=== PATIENT | female | born 1980 | race Caucasian/White ===

== ENCOUNTER 2022-07-29 03:08 | Emergency (ER) | payer OTHER, SELFPAY ==
--- NOTE | ~2022-07-29 | XR_ITS ---
EXAMINATION: XR CHEST CLINICAL INFORMATION: Chest pain COMPARISON: None TECHNIQUE: Frontal view of the chest was obtained. FINDINGS: No significant abnormality is noted involving the heart, lungs, mediastinum, bony thorax or soft tissues. XR/XR chest 1V IMPRESSION: Unremarkable examination.
--- NOTE | 2022-07-29 03:11 | ECG_ITS ---
Test Reason : CP Blood Pressure : / mmHG Vent. Rate : 098 BPM Atrial Rate : 098 BPM P-R Int : 118 ms QRS Dur : 076 ms QT Int : 354 ms P-R-T Axes : 040 066 051 degrees QTc Int : 451 ms Artifact in tracing Normal sinus rhythm Likely Normal ECG When compared with ECG of 24-JUL-2016 15:31, No significant change was found Referred By: Generic ED Physician Electronically Signed By:DUNG DE LOS SANTOS
[2022-07-29 03:26] VITALS: BP 145/92; PULSE 105; RESP 24; TEMP 36.9; O2SAT 100; BMI 23.8
[2022-07-29 03:27] LABS: Hematocrit 41.3 % (37.0-47.0); Hemoglobin 13.4 g/dl (12.0-16.0); Mean Corpuscular HGB Conc 32.4 g/dl (31.0-35.0); Mean Corpuscular Hemoglobin 29.7 pg (27.0-33.0); Mean Corpuscular Volume 91.6 fL (80.0-98.0); Mean Platelet Volume 9.1 fL (9.4-12.3); Platelet Count 382 X10*3/uL (160-400); Red Blood Count 4.51 X10*6/uL (4.20-5.50); Red Cell Distribution Width 13.3 % (11.0-16.0); White Blood Count 8.6 X10*3/uL (4.8-10.8)
[2022-07-29 03:58] LABS: Alanine Aminotransferase 16 U/L (0-31); Albumin Level 4.3 g/dL (3.5-5.0); Alkaline Phosphatase 65 U/L (39-117); Anion Gap 13 (12-20); Aspartate Amino Transferase 12 U/L (5-31); Bilirubin Total 0.3 mg/dL (0.0-1.0); Blood Urea Nitrogen 27 mg/dL (9-16); Carbon Dioxide 27 mmol/L (22-29); Chloride 102 mmol/L (96-108); Creatinine Clr Calc Pharmacy 59.1; Estimated Glomerular Filt Rate > 60; Glucose Random 107 mg/dL (60-115); Potassium 3.6 mmol/L (3.3-5.1); Sodium 138 mmol/L (135-145); Total Protein 6.8 g/dL (6.5-8.0)
[2022-07-29 04:09] LABS: Troponin-I High Sensitivity < 3.5 ng/L (<3.5-17.0)
--- NOTE | 2022-07-29 04:27 | ED.CHESTPAIN ---
HPI - Chest Pain General Chief Complaint: Chest Pain Stated Complaint: chest and l shoulder pain Time Seen by Provider: 07/29/22 05:38 Source: patient and family Mode of arrival: ambulatory Limitations: no limitations History of Present Illness HPI narrative: 42-year-old female came in with left shoulder pain radiating down to the left arm and going around her left armpit toward left side of her chest, pain as been there for 2 days, pain is severe 10/10, pain increase with movement of the neck or the left arm. No recent trauma to the neck, no recent heavy lifting. Related Data Previous Rx's Medication Instructions Recorded oxycodone 5 mg tablet 5 mg PO Q8H PRN pain #14 tabs 07/29/22 Allergies Allergy/AdvReac Type Severity Reaction Status Date / Time pregabalin [From LYRICA] Allergy Intermediate HIVES, Unverified 04/12/20 15:08 nausea and vomiting Sulfa (Sulfonamide Allergy Intermediate RASH Unverified 04/12/20 15:08 Antibiotics) [SULFA (SULFONAMIDE ANTIBIOTICS)] amoxicillin [AMOXICILLIN] Allergy Unknown ITCHINESS Unverified 04/12/20 15:08 AND REDNESS, rash carisoprodol [From SOMA] Allergy Unknown CHEST PAIN Unverified 04/12/20 15:08 sulfur Allergy Unknown Verified 07/31/17 00:00 sulfa Allergy Unknown hives Uncoded 02/07/19 00:00 tape Allergy Unknown rash Uncoded 02/07/19 00:00 Review of Systems Review of Systems: All other systems are reviewed and are negative Constitutional: Reports as per HPI and Reports no additional constitutional complaints Eyes: Reports as per HPI and Reports no additional eye complaints Reports system reviewed and no additional complaints, except as documented Cardiovascular: Reports as per HPI and Reports no additional cardiovascular complaints Respiratory: Reports as per HPI and Reports no additional respiratory complaints Gastrointestinal: Reports as per HPI and Reports no additional gastrointestinal complaints Genitourinary: Reports no additional female genitourinary complaints Musculoskeletal: Reports no additional musculoskeletal complaints Skin/Breast: Reports system reviewed and no additional complaints, except as docu Psychiatric: Reports no additional psychiatric complaints Endocrine: Reports no additional endocrine complaints Hematologic/Lymphatic: Reports no additional hematologic/lymphatic complaints Allergic/Immunologic: Reports no additional allergic/immunologic complaints Reports system reviewed and no additional complaints, except as documented and Reports Abnormal speech present [facility] Social History Social History Alcohol intake: never Smoked in Last 30 Days: No Use of substances other than those prescribed or required for medical reasons: No Advance Directives: No Patient : No Physical Exam Vital Signs: Vital Signs: Last Vital Signs Temp 98.5 F 07/29/22 03:26 Pulse 92 07/29/22 04:34 Resp 16 07/29/22 04:34 BP 145/92 H 07/29/22 03:26 Pulse Ox 98 07/29/22 04:34 O2 Del Method 07/29/22 04:34 BMI result Body Mass Index 23.8 Vital signs have been reviewed as appeared to be correct. Blood pressure normal. Heart rate normal. Respiration rate normal. Temperature normal. Oxygen saturation normal. Appearance: Alert. Oriented X3. No acute distress. Head: Normal external exam. Normocephalic. Atraumatic. No Mccall signs noted. No raccoon eyes noted Eyes: PERRLA. EOMI. Conjunctiva and sclera normal. Eyelids normal. ENT: TM's Normal. Pharynx normal. Uvula midline. Moist mucous membranes. No trismus noted. No drooling noted. No muffled voice noted. Neck: Normal inspection. Neck supple. FROM. No adenopathy. Thyroid Normal. No meningeal signs. No neck mass noted. CVS: Normal heart rate and rhythm. Heart sound normal. No murmurs noted. Pulses normal throughout. Respiratory: No respiratory distress. Painless inspiration. Breath sounds normal. No wheezes/rales/rhonchi noted. Chest nontender. No accessory muscle usage noted or decreased air movement noted. Abdomen: Soft and nontender. Bowel sounds normal in all 4 quadrants. No distention noted. No organomegaly noted. No visible injury noted. Back: No CVA tenderness. Full range of motion noted. Skin: Skin warm and dry. Normal skin color. Normal skin turgor. No rashes/lesions/lacerations noted. Extremities: Increase left shoulder and left arm pain if she turned her head to either side or try to left left arm above the head. Neuro: Oriented X 3. Cranial nerve exam: II-XII are grossly intact No motor deficit. No sensory deficit. Reflexes normal. Course Course Course Narrative: 42-year-old female history of POTS syndrome otherwise healthy came in with left cervical radiculopathy that improved with Dilaudid and Toradol patient feels better, no neurological deficit, patient was instructed to rest and refrain from heavy lifting will send home with oxycodone. Medications Administered Discontinued Medications Generic Name Dose Route Start Last Admin Trade Name Freq PRN Reason Stop Dose Admin Hydromorphone HCl 2 mg 07/29/22 04:26 07/29/22 04:31 Hydromorphone Hcl 2 Mg/Ml Vial IM 07/29/22 04:27 2 mg ONCE ONE Administration Protocol Ketorolac Tromethamine 30 mg 07/29/22 04:26 07/29/22 04:31 Ketorolac Tromethamine 30 Mg/Ml Vial IM 07/29/22 04:27 30 mg ONCE ONE Administration Medical Decision Making Differential Diagnosis Differential Diagnoses: The differential diagnosis associated with the presentation includes (ACS, cervical radiculopathy, pneumothorax, pneumonia.) Lab Data MDM Lab Attestation statement: I reviewed the patient's lab results. Result Diagrams: 07/29/22 03:20 07/29/22 03:20 Labs: Lab Results 07/29/22 07/29/22 07/29/22 Range/Units 03:20 03:20 03:20 WBC 8.6 (4.8-10.8) X10*3/uL RBC 4.51 (4.20-5.50) X10*6/uL Hgb 13.4 (12.0-16.0) g/dl Hct 41.3 (37.0-47.0) % MCV 91.6 (80.0-98.0) fL MCH 29.7 (27.0-33.0) pg MCHC 32.4 (31.0-35.0) g/dl RDW 13.3 (11.0-16.0) % Plt Count 382 (160-400) X10*3/uL MPV 9.1 L (9.4-12.3) fL Absolute Nucleated RBC 0.000 (0.0-0.012) X10*3/uL Nucleated RBC % (auto) 0.0 (0.0-0.2) /100WBC Sodium 138 (135-145) mmol/L Potassium 3.6 (3.3-5.1) mmol/L Chloride 102 (96-108) mmol/L Carbon Dioxide 27 (22-29) mmol/L Anion Gap 13 (12-20) BUN 27 H (9-16) mg/dL Creatinine 0.97 (0.5-1.4) mg/dL Estim Creat Clear Calc 59.1 Estimated GFR > 60 Random Glucose 107 (60-115) mg/dL Calcium 10.0 (8.4-10.2) mg/dL Total Bilirubin 0.3 (0.0-1.0) mg/dL AST 12 (5-31) U/L ALT 16 (0-31) U/L Alkaline Phosphatase 65 (39-117) U/L Troponin I High Sens < 3.5 (<3.5-17.0) ng/L Total Protein 6.8 (6.5-8.0) g/dL Albumin 4.3 (3.5-5.0) g/dL Independent Interpretation I performed an independent interpretation of an: EKG (Normal sinus rhythm at 98 beats per minute, normal intervals, normal axis deviation, no ST-T changes.) and Plain X-Ray (chest: Unremarkable examination.) Radiology Impression Discussion of test interpretation with radiology: I have reviewed the radiologist's reading. Discharge Plan Discharge Clinical Impression: Cervical radiculopathy Patient Disposition: Home, Self-Care Instructions: Cervical Radiculopathy (ED) Prescriptions: New oxycodone 5 mg tablet 5 mg PO Q8H PRN (Reason: pain) Qty: 14 0RF Rx Instructions: Partial Fill upon patient request. Referrals: Salbador Willard MD [Primary Care Provider] - Stand Alone Forms: Work/School Release
[2022-07-29] MEDS: HYDROmorphone HCl 2 MG/ML VIAL IM (04:31)
[2022-07-29] MEDS: Ketorolac Tromethamine 30 MG/ML VIAL IM (04:31)
[2022-07-29 04:34] VITALS: PULSE 82; PULSE 92; RESP 16; O2SAT 98
== END 2022-07-29 06:13 | disposition home or self-care (01) ==
PROVIDERS: Emergency Provider Emergency Medicine; PCP Internal Medicine
DX: M54.12 Radiculopathy, cervical region (principal)
CPT/HCPCS: 36415; 71045; 80053; 84484; 85027; 93005; 96372; 99284; 99285; J1170; J1885

== ENCOUNTER 2022-07-30 16:10 | Emergency (ER) | payer OTHER, SELFPAY | END 2022-07-30 17:09 | disposition left against medical advice (07) | PROVIDERS: Emergency Provider Emergency Medicine; PCP Internal Medicine | DX: R42 Dizziness and giddiness (principal); R20.2 Paresthesia of skin ==

== ENCOUNTER 2022-11-21 13:20 | Outpatient (REF) | payer OTHER, MEDICAID, SELFPAY ==
--- NOTE | ~2022-11-21 | XR_ITS ---
EXAMINATION: XR CHEST CLINICAL INFORMATION: Fever COMPARISON: Chest x-ray 07/29/2022 TECHNIQUE: 2 views of the chest were obtained. FINDINGS: Both lungs are expanded without acute pneumonic process. There is mild bilateral perihilar peribronchial wall thickening likely airway disease. Question bronchiectasis. Heart size and progress clarities normal. There is minimal dextroscoliosis mid dorsal spine. No other bony abnormality. XR/XR chest 2V IMPRESSION: Mild bilateral perihilar peribronchial wall thickening likely airway disease. Question bronchiectasis. No acute pneumonic process seen. Correlate with clinical exam and if required CT chest without contrast
== END 2022-11-21 13:21 | disposition home or self-care (01) ==
LOC: HO.HMGCX 13:20
PROVIDERS: PCP Internal Medicine; Visit Provider Physician Assistant Medical
DX: R05.9 Cough, unspecified (principal); R50.9 Fever, unspecified
CPT/HCPCS: 71046

== ENCOUNTER 2022-11-21 13:43 | Outpatient (REF) | payer MEDICAID, SELFPAY ==
[2022-11-21 17:10] LABS: Influenza A PCR NEGATIVE (Negative); Influenza B PCR NEGATIVE (Negative); Resp Syncy Virus RNA Qual PCR NEGATIVE (Negative); SARS COV2 PCR INHOUSE NEGATIVE (Negative)
== END 2022-11-21 13:44 | disposition home or self-care (01) ==
LOC: HO.LAB 13:43
PROVIDERS: Visit Provider Emergency Medicine
DX: R09.89 Other specified symptoms and signs involving the circulatory and respiratory systems (principal); Z20.822 Contact with and (suspected) exposure to COVID-19
CPT/HCPCS: 0241U

== ENCOUNTER 2023-12-26 12:56 | Outpatient (AMB) | payer OTHER, MEDICAID, SELFPAY ==
--- NOTE | 2023-12-26 13:05 | AM.OFFWIN_ITS ---
Intake Vital Signs 12/26/23 13:06 Height 5 ft 2 in Weight 172 lb BMI 31.5 BP 112/68 Blood Pressure Location Rt brachial Position Sitting Pulse 100 Pulse Source Pulse Oximeter Pulse Oximetry (%) 98 Oxygen Delivery Method Room Air Intake Visit Reasons: EST/ left side pain (lobby) Intake Note: Patient here for left sided pain that started yesterday. Patient Tobacco Use Status: Never used Tobacco Allergies pregabalin [From LYRICA] Allergy (Intermediate, Verified 12/26/23 13:31) HIVES, nausea and vomiting Sulfa (Sulfonamide Antibiotics) [SULFA (SULFONAMIDE ANTIBIOTICS)] Allergy (Intermediate, Verified 12/26/23 13:31) RASH amoxicillin [AMOXICILLIN] Allergy (Unknown, Verified 12/26/23 13:31) ITCHINESS AND REDNESS, rash carisoprodol [From SOMA] Allergy (Unknown, Verified 12/26/23 13:31) CHEST PAIN sulfur Allergy (Unknown, Verified 12/26/23 13:31) Abdominal Pain sulfa Allergy (Unknown, Uncoded 12/26/23 13:07) hives tape Allergy (Unknown, Uncoded 12/26/23 13:07) rash Do you need a note to return to daycare/school/sports/work: No HPI HPI Comments History of Present Illness Details here today with complaints of left low back pain that radiates into her left lower quadrant that started last night. Reports she was in her usual state of health until this time. Pain is worse since onset. She reports a history of kidney infections along with kidney stones. Reports he has not had an attack in quite some time. 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 She denies any trauma to her back. Denies any abdominal symptoms. Denies fever and chills. [facility] Social History Alcohol intake: never Patient Tobacco Use Status: Never used Tobacco Review of Systems Const All systems reviewed & are unremarkable except as noted in HPI and below Physical Exam Vital Signs: Last Vital Signs Pulse 100 12/26/23 13:06 BP 112/68 12/26/23 13:06 Pulse Ox 98 12/26/23 13:06 Oxygen Delivery Method Room Air 12/26/23 13:06 BMI result Body Mass Index 31.5 HEENT Other: Awake alert oriented mucous membranes moist positive CVAT on the left, negative on the right, pain with palpation over the left lower quadrant. Be that as it may she did complain of pain anywhere that I did touch her so is hard to say if it actually was a positive CVAT. She does not appear toxic. Results AMB Urinalysis, Automated UA Leukoctes 0 Richard/uL Last Edit by [facility] on 12/26/23 13:18 UA Nitrite Negative Last Edit by [facility] on 12/26/23 13:18 UA Urobilinogen 0.2 mg/dL Last Edit by RohiniMarquise [facility] on 12/26/23 13:18 UA Protein 0 mg/dL Last Edit by Seb [facility] on 12/26/23 13:18 UA pH 6.0 Last Edit by [facility] on 12/26/23 13:18 UA Blood 200 Jonah/uL Last Edit by [facility]b [facility] on 12/26/23 13:18 UA Specific [place] 1.020 Last Edit by RohiniJanuary [facility] on 12/26/23 13:18 UA Ketone Negative Last Edit by Seb [facility] on 12/26/23 13:18 UA Bilirubin 0 mg/dL Last Edit by [facility]b [facility] on 12/26/23 13:18 UA Glucose mg/dL Last Edit by RohiniMarquise [facility] on 12/26/23 13:18 Results Reviewed Results Reviewed: Laboratory Last Values Urine pH (Auto) 6.0 12/26/23 13:17 Specific [place] (Auto) 1.020 12/26/23 13:17 Urine Protein (Auto) 0 mg/dL 12/26/23 13:17 Urine Ketones (Auto) Negative 12/26/23 13:17 Urine Blood (Auto) 200 Jonah/uL 12/26/23 13:17 Urine Nitrite (Auto) Negative 12/26/23 13:17 Urine Bilirubin (Auto) 0 mg/dL 12/26/23 13:17 Urine Urobilinogen (Auto) 0.2 mg/dL 12/26/23 13:17 Leukocyte Esterase (Auto) 0 Richard/uL 12/26/23 13:17 Assessment & Plan Assessment & Plan (1) Left flank pain: Code(s): R10.9 - Unspecified abdominal pain Plan: . Orders: Orders AMB Urinalysis Automated Today Z13.9 - Encounter for screening, unspecified Medications: New ciprofloxacin HCl 500 mg PO BID 14 tabs 0RF tamsulosin (Flomax) 0.4 mg PO BEDTIME 14 caps 0RF Patient Instructions: please take antibiotics and Flomax as directed. Please be sure to liberally hydrated. She developed fever, chills, worsening of your symptoms I do recommend that she follow-up with your healthcare team. Coding Level of Care Code Est Pt Level 4 (95321) Diagnoses Left flank pain R10.9
[2023-12-26 13:06] VITALS: BP 112/68; PULSE 100; O2SAT 98; BMI 31.5
== END 2023-12-26 13:36 | disposition home or self-care (01) ==
PROVIDERS: PCP Internal Medicine; Visit Provider Nurse Practitioner Family
DX: R10.9 Unspecified abdominal pain (principal)
CPT/HCPCS: 81003; 99214

== ENCOUNTER 2023-12-30 09:12 | Emergency (ER) | payer OTHER, SELFPAY ==
--- NOTE | ~2023-12-30 | CT_ITS ---
EXAMINATION: CT ABDOMEN AND PELVIS WITHOUT CONTRAST CLINICAL INFORMATION: Left flank pain, abdominal distention. COMPARISON: CT abdomen/pelvis 09/19/2009. TECHNIQUE: Multidetector volumetric imaging was performed from the superior aspect of the liver through the pubic symphysis. Sagittal and coronal reformatted images were obtained on the technologist's workstation. This CT examination was performed using dose optimization techniques as appropriate, variously including the following: *Automated exposure control *Adjustment of mA and/or kV according to patient size (this includes techniques or standardized protocols for targeted exams where dose is matched to indication/reason for exam; i.e. extremities or head) *Use of iterative reconstruction technique DLP: 537 mGy-cm FINDINGS: The lack of intravenous contrast limits evaluation of the solid visceral organs including the liver, spleen, pancreas, and kidneys. LUNG BASES: No focal consolidation or pleural effusion. LIVER, GALLBLADDER, AND BILIARY TREE: Compared to 09/19/2009, new low density liver lesions in the posterior right hepatic lobe anterior to the retrohepatic IVC measuring 1.5 and 2 cm (3:18 and 3:21) with attenuation higher than simple fluid, not consistent with simple cysts. Otherwise, liver is normal in size and morphology. No evidence of calcified cholelithiasis nor inflammatory changes to suspect acute cholecystitis. No biliary ductal dilatation. PANCREAS: Unremarkable. SPLEEN: Unremarkable. ADRENAL GLANDS: Unremarkable. KIDNEYS AND URETERS: No nephrolithiasis or hydronephrosis. No perinephric fat stranding. BLADDER: Unremarkable. GASTROINTESTINAL TRACT: The stomach and the small bowel are nondilated. Normal appendix. Mild colonic diverticulosis without significant pericolonic inflammatory changes. Moderate degree of colonic stool burden with fecalization of a few loops of distal small bowel. ABDOMINAL WALL: No significant hernia is appreciated. LYMPH NODES: No lymphadenopathy. VASCULAR: Normal caliber abdominal aorta. PELVIC VISCERA: Redemonstration of tubal ligation clips with the right clip migrated to the left cul-de-sac and similar positioning of the left clip adjacent to the left ovary. No free fluid. OSSEOUS STRUCTURES: No acute or aggressive appearing osseous findings. CT/CT abdomen pelvis wo IV con IMPRESSION: 1. No nephrolithiasis or hydronephrosis. 2. Moderate degree of colonic stool burden with fecalization of a few loops of distal small bowel suggesting slow transit and constipation. 3. Mild colonic diverticulosis without evidence of acute diverticulitis. 4. Indeterminate low-density liver lesions in the posterior right hepatic lobe, not consistent with simple cysts. Recommend further characterization with a dynamic abdominal MRI with and without intravenous contrast. 5. Migration of the right tubal ligation clip to the left aspect of the cul-de-sac.
[2023-12-30 09:16] VITALS: BP 108/68; PULSE 87; RESP 16; TEMP 36.6; O2SAT 100; BMI 32.2
[2023-12-30 09:58] LABS: MANUAL DIFF FLAG NO
[2023-12-30 10:03] LABS: Basophils Absolute Auto 0.1 X10*3/uL (0.0-0.2); Basophils Percent Auto 1.2 % (0-2); Eosinophils Absolute Auto 0.3 X10*3/uL (0.0-0.4); Eosinophils Percent Auto 4.2 % (0-4); Hematocrit 38.6 % (37.0-47.0); Hemoglobin 12.6 g/dl (12.0-16.0); Imm Gran Abs Auto 0.05 X10*3/uL (0.00-0.03); Imm Gran Pct Auto 0.8 % (0.0-0.4); Lymphocytes Absolute Auto 1.6 X10*3/uL (1.2-4.9); Lymphocytes Percent Auto 26.5 % (20-40); Mean Corpuscular HGB Conc 32.6 g/dl (31.0-35.0); Mean Corpuscular Hemoglobin 30.9 pg (27.0-33.0); Mean Corpuscular Volume 94.6 fL (80.0-98.0); Mean Platelet Volume 10.1 fL (9.4-12.3); Monocytes Absolute Auto 0.5 X10*3/uL (0.1-1.2); Neutrophils Absolute Auto 3.5 x10*3/uL (2.0-8.3); Neutrophils Percent Auto 58.3 % (45-73); Platelet Count 226 X10*3/uL (160-400); Red Blood Count 4.08 X10*6/uL (4.20-5.50); Red Cell Distribution Width 13.2 % (11.0-16.0); White Blood Count 5.9 X10*3/uL (4.8-10.8)
[2023-12-30 10:17] LABS: Alanine Aminotransferase 12 U/L (0-31); Albumin Level 3.8 g/dL (3.5-5.0); Alkaline Phosphatase 60 U/L (39-117); Anion Gap 12 (12-20); Aspartate Amino Transferase 14 U/L (5-31); Bilirubin Direct < 0.2 mg/dL (0.0-0.5); Bilirubin Total 0.2 mg/dL (0.0-1.0); Blood Urea Nitrogen 16 mg/dL (9-16); Calcium 8.6 mg/dL (8.4-10.2); Carbon Dioxide 20 mmol/L (22-29); Chloride 111 mmol/L (96-108); Creatinine Clr Calc Pharmacy 92.4; Estimated Glomerular Filt Rate > 60; Glucose Random 93 mg/dL (60-115); Lipase 25 U/L (8-78); Potassium 4.3 mmol/L (3.3-5.1); Sodium 139 mmol/L (135-145); Total Protein 6.4 g/dL (6.5-8.0)
--- NOTE | 2023-12-30 10:36 | ED.ABDPAIN ---
HPI - Abdominal Pain General Chief Complaint: Abdominal Pain Stated Complaint: pain in kidney and lower abd Time Seen by Provider: 12/30/23 10:24 Source: patient and old records reviewed Mode of arrival: ambulatory Limitations: no limitations History of Present Illness ED Provider: FILIPE HPI narrative: 43 yo female with PMH of renal colic, POTS, depression, anxiety, fibromyalgia notes since 12/25 L flank pain abdominal pain nausea chills and not feelling well. Feels her stomach is distended and is very nauseated today. Went to walk in clinic and was given cipro and flomax and had negative urine at that time no imaging done. She states she had to come today as she cannot take it. MD elicited complaint: abdominal pain Pertinent past history: kidney stones Onset (ago): day(s) (4+) Pain Consistency: constant Location: LUQ and L flank Severity: severe Quality: stabbing Radiation: none Migration to: no migration Exacerbating factors: movement Relieving factors: nothing Associated symptoms: nausea, vomiting and chills Treatments prior to arrival: other (cipro and flomax) Related Data Home Medications ?Medication ?Instructions ?Recorded ?Confirmed clonazepam 1 mg tablet 1 mg PO TID 11/21/22 lamotrigine 200 mg tablet 200 mg PO DAILY 12/26/23 (Lamictal) quetiapine 200 mg tablet (Seroquel) 200 mg PO DAILY 12/26/23 Previous Rx's ?Medication ?Instructions ?Recorded ciprofloxacin HCl 500 mg tablet 500 mg PO BID #14 tabs 12/26/23 tamsulosin 0.4 mg capsule (Flomax) 0.4 mg PO BEDTIME #14 caps 12/26/23 docusate sodium 100 mg capsule 100 mg PO BID #20 caps 12/30/23 (Col-Rite) lactulose 10 gram/15 mL oral 20 g (30 mL) PO DAILY PRN 12/30/23 solution constipation #237 mL Allergies Allergy/AdvReac Type Severity Reaction Status Date / Time pregabalin [From LYRICA] Allergy Intermediate HIVES, Verified 12/26/23 13:31 nausea and vomiting Sulfa (Sulfonamide Allergy Intermediate RASH Verified 12/30/23 09:16 Antibiotics) [SULFA (SULFONAMIDE ANTIBIOTICS)] amoxicillin [AMOXICILLIN] Allergy Unknown ITCHINESS Verified 12/30/23 09:16 AND REDNESS, rash carisoprodol [From SOMA] Allergy Unknown CHEST PAIN Verified 12/30/23 09:16 sulfur Allergy Unknown Abdominal Verified 12/30/23 09:16 Pain sulfa Allergy Unknown hives Uncoded 12/26/23 13:07 tape Allergy Unknown rash Uncoded 12/26/23 13:07 Review of Systems Review of Systems Constitutional : No Weight loss, No Fever, pos Chills ENT/Mouth : No sore throat, No Rhinorrhea Eyes: No Swelling, No Redness Cardiovascular : No Chest Pain, No SOB, NoEdema Respiratory : No Cough, No Sputum, No Wheezing Gastrointestinal : Positive Nausea, Positive Vomiting, no Diarrhea, positive abdominal Pain, No Hematochezia, No Melena Genitourinary : No Dysuria, No Urinary Frequency, No Hematuria, No Urgency Musculoskeletal : No joint pain, No Myalgias, No Joint Swelling Skin : No Skin Lesions, No rash Neuro : No Weakness, No Numbness, No Dizziness, No Headache Psych : No Anxiety/Panic, No Depression All other systems reviewed and are negative. [facility] Past Medical History Attestation statement: The following information was validated with the patient. Source: old records reviewed Medical History Renal colic Fibromyalgia Depression Anxiety POTS (postural orthostatic tachycardia syndrome) Social History Social History Alcohol intake: never Patient Tobacco Use Status: Never used Tobacco Advance Directives: No Advance Directives Information Provided: No Physical Exam ED Vital Signs: Vital Signs - 24 hr 12/30/23 09:16 12/30/23 11:10 Temperature 97.8 F 98.7 F Pulse Rate 87 78 Respiratory Rate 16 20 Blood Pressure 108/68 108/67 Pulse Oximetry 100 100 Oxygen Delivery Method Room Air Room Air BMI result Body Mass Index 32.2 Appearance: Alert. Oriented X3. anxious appears uncomfortable mild acute distress. Eyes: Pupils equal, round and reactive to light. ENT: Pharynx normal. Neck: Normal inspection. Neck supple. CVS: Normal heart rate and rhythm. Pulses normal. Respiratory: No respiratory distress. Breath sounds normal. Abdomen: Soft and moderate L CVA ttp and LUQ pain no rebound Skin: Skin warm and dry. Normal skin color. Normal skin turgor. Extremities: No lower extremity edema. No calf ttp Neuro: Oriented X 3. No motor deficit. No sensory deficit. Medical Decision Making Medical Decision Making [facility] Narrative: 43 yo female with PMH of renal colic, POTS, depression, anxiety, fibromyalgia here with c/o L flank pain and associated nausea and chills at this time will need basic labs, UA, CT scan for renal colic/diverticulitis/colitis, IVF and nausea medications along with IV dilaudid for pain. Differential Diagnosis Differential Diagnoses: The differential diagnosis associated with the presentation includes diverticulitis, colitis, constipation, renal colic Admission/Observation Consideration of admission/observation: Escalation of care including admission/observation considered not toxic no further vomiting will need bowel regimen for home Consult Healthcare Provider Management of the patient was discussed with: Freezer Person given the tubal ligation clips I did ask Dr. Eller to evaluate her CT scan and patient not emergent can follow up as outpatient Lab Data [facility] Lab Attestation statement: I reviewed the patient's lab results. 12/30/23 09:45 12/30/23 09:45 Labs: Lab Results 12/30/23 12/30/23 Range/Units 09:45 10:40 WBC 5.9 (4.8-10.8) X10*3/uL RBC 4.08 L (4.20-5.50) X10*6/uL Hgb 12.6 (12.0-16.0) g/dl Hct 38.6 (37.0-47.0) % MCV 94.6 (80.0-98.0) fL MCH 30.9 (27.0-33.0) pg MCHC 32.6 (31.0-35.0) g/dl RDW 13.2 (11.0-16.0) % Plt Count 226 D (160-400) X10*3/uL MPV 10.1 (9.4-12.3) fL Immature Gran % (Auto) 0.8 H (0.0-0.4) % Neut % (Auto) 58.3 (45-73) % Lymph % (Auto) 26.5 (20-40) % [place]field % (Auto) 9.0 (2-11) % Eos % (Auto) 4.2 H (0-4) % Baso % (Auto) 1.2 (0-2) % Lymph # (Auto) 1.6 (1.2-4.9) X10*3/uL [place] # (Auto) 0.5 (0.1-1.2) X10*3/uL Eos # (Auto) 0.3 (0.0-0.4) X10*3/uL Baso # (Auto) 0.1 (0.0-0.2) X10*3/uL Abs Immat Gran (auto) 0.05 H (0.00-0.03) X10*3/uL Absolute Neuts (auto) 3.5 (2.0-8.3) x10*3/uL Absolute Nucleated RBC 0.000 (0.0-0.012) X10*3/uL Nucleated RBC % (auto) 0.0 (0.0-0.2) /100WBC Sodium 139 (135-145) mmol/L Potassium 4.3 (3.3-5.1) mmol/L Chloride 111 H (96-108) mmol/L Carbon Dioxide 20 L (22-29) mmol/L Anion Gap 12 (12-20) BUN 16 (9-16) mg/dL Creatinine 0.76 (0.5-1.4) mg/dL Estim Creat Clear Calc 92.4 Estimated GFR > 60 Random Glucose 93 (60-115) mg/dL Calcium 8.6 D (8.4-10.2) mg/dL Total Bilirubin 0.2 (0.0-1.0) mg/dL Direct Bilirubin < 0.2 (0.0-0.5) mg/dL AST 14 (5-31) U/L ALT 12 (0-31) U/L Alkaline Phosphatase 60 (39-117) U/L Total Protein 6.4 L (6.5-8.0) g/dL Albumin 3.8 (3.5-5.0) g/dL Lipase 25 (8-78) U/L Beta HCG, Quant < 2 mIU/mL Urine Color Yellow Urine Appearance Clear Urine pH 5.5 (5.0-9.0) Ur Specific [place] 1.015 (1.005-1.025) Urine Protein Negative (Neg-Trace) mg/dL Urine Glucose (UA) Negative (Negative) mg/dL Urine Ketones Negative (Negative) mg/dL Urine Blood Large (3+) H (Negative) Urine Nitrite Negative (Negative) Ur Leukocyte Esterase Negative (Negative) Urine RBC 3-5 H (0-2) /HPF Urine WBC 0-5 (0-5) /HPF Ur Squamous Epith Cells 0-2 (0-2) /HPF Urine Bacteria None Seen (None Seen) Hyaline Casts 0-2 (0-2) /LPF Independent Interpretation I performed an independent interpretation of an: CT Scan (constipation) Radiology Impression Discussion of test interpretation with radiology: I have reviewed the radiologist's reading. External Record Review External record reviewed: Office record and Outpatient record Prescription Management I considered prescription management with: Other Medications Administered Discontinued Medications Generic Name Dose Route Start Last Admin Trade Name Freq PRN Reason Stop Dose Admin Hydromorphone HCl 1 mg 12/30/23 11:12/30/23 11:33 Hydromorphone Hcl 1 Mg/Ml Syringe IVPUSH 12/30/23 11:02 1 mg ONCE ONE Administration Protocol Sodium Chloride 1,000 mls @ 999 mls/hr 12/30/23 11:01 12/30/23 12:39 Ns IV 12/30/23 12:01 Infused .Q1H1M ONE Infusion Ondansetron HCl 4 mg 12/30/23 11:01 12/30/23 11:33 Ondansetron Hcl 4 Mg/2 Ml Vial IVPUSH 12/30/23 11:02 4 mg ONCE ONE Administration Critical Care Time Critical Care Time Critical Care Time: Yes Total Critical Care Time: 40 Attestation: review of records, medical consult, IV dilaudid for pain with improvement in pain I attest to this time spent taking care of the patient Discharge Plan Discharge Clinical Impression: Constipation Qualifiers: Constipation type: unspecified constipation type Qualified Code(s): K59.00 - Constipation, unspecified Patient Disposition: Home, Self-Care Instructions: Constipation (ED) Additional Instructions: take medications as prescribed there were incidental findings that need primary care and OBGYN follow up - take the lactulose daily for the next 5 days you will need outpatient MRI of the liver for cysts call your doctor your surgical clips from tubal ligation have moved please call your OBGYN CT/CT abdomen pelvis wo IV con IMPRESSION: 1. No nephrolithiasis or hydronephrosis. 2. Moderate degree of colonic stool burden with fecalization of a few loops of distal small bowel suggesting slow transit and constipation. 3. Mild colonic diverticulosis without evidence of acute diverticulitis. 4. Indeterminate low-density liver lesions in the posterior right hepatic lobe, not consistent with simple cysts. Recommend further characterization with a dynamic abdominal MRI with and without intravenous contrast. 5. Migration of the right tubal ligation clip to the left aspect of the cul-de-sac. Prescriptions: New docusate sodium [Col-Rite] 100 mg capsule 100 mg PO BID Qty: 20 0RF lactulose 10 gram/15 mL solution 20 g PO DAILY PRN (Reason: constipation) Qty: 237 0RF No Action clonazepam 1 mg tablet 1 mg PO TID lamotrigine [Lamictal] 200 mg tablet 200 mg PO DAILY quetiapine [Seroquel] 200 mg tablet 200 mg PO DAILY tamsulosin [Flomax] 0.4 mg capsule 0.4 mg PO BEDTIME Qty: 14 0RF ciprofloxacin HCl 500 mg tablet 500 mg PO BID Qty: 14 0RF Stand Alone Forms: Work/School Release Print Language: Sinhala
[2023-12-30 10:51] LABS: Appearance Urine Clear; Color Urine Yellow; Glucose Urine UA Negative (Negative); Leukocyte Esterase Urine Negative (Negative); Nitrite Urine Negative (Negative); PH 5.5 (5.0-9.0); Specific Gravity - Urine 1.015 (1.005-1.025); UMIC TRIGGER UACC YES; Urine Blood Large (3+) (Negative); Urine Ketones Negative (Negative); Urine Protein Negative (Neg-Trace)
[2023-12-30 11:00] LABS: Bacteria Urine None Seen (None Seen); Hyaline Casts Urine 0-2 /LPF (0-2); Squamous Epithelial Cell Urine 0-2 /HPF (0-2); WBC Urine 0-5 /HPF (0-5)
[2023-12-30 11:06] LABS: HCG Quantitative < 2 mIU/mL
[2023-12-30 11:10] VITALS: BP 108/67; PULSE 78; RESP 20; TEMP 37.1; O2SAT 100
[2023-12-30] MEDS: 0.9 % Sodium Chloride 1,000 ML 999 ML IV (11:33)
[2023-12-30] MEDS: ondansetron HCL 4 MG/2 ML VIAL IVPUSH (11:33)
[2023-12-30] MEDS: HYDROmorphone HCl 1 MG/ML SYRINGE IVPUSH (11:33)
--- NOTE | 2023-12-30 13:52 | PM.GYNCN ---
PATIENT COORDINATOR FRONT DESK - CN: HPI Data of Consult Consult date: 12/30/23 Primary Care Provider: Patricia Chaudhary MD Consult Narrative Narrative: Was consulted on Zoila Maciel who is a 43 year old female presenting to the emergency room complaining of 5 days history of left flank pain and abdominal pain associated with nausea, no vomiting. HCG in the emergency room was less than 2. The patient gives a history of tubal sterilization around 16 years ago cc:: CC: OB [facility] Past Medical History Medical History Renal colic Fibromyalgia Depression Anxiety POTS (postural orthostatic tachycardia syndrome) Social History Social History Alcohol intake: never Patient Tobacco Use Status: Never used Tobacco Advance Directives: No Advance Directives Information Provided: No Meds Allergies Allergy/AdvReac Type Severity Reaction Status Date / Time pregabalin [From LYRICA] Allergy Intermediate HIVES, Verified 12/26/23 13:31 nausea and vomiting Sulfa (Sulfonamide Allergy Intermediate RASH Verified 12/30/23 09:16 Antibiotics) [SULFA (SULFONAMIDE ANTIBIOTICS)] amoxicillin [AMOXICILLIN] Allergy Unknown ITCHINESS Verified 12/30/23 09:16 AND REDNESS, rash carisoprodol [From SOMA] Allergy Unknown CHEST PAIN Verified 12/30/23 09:16 sulfur Allergy Unknown Abdominal Verified 12/30/23 09:16 Pain sulfa Allergy Unknown hives Uncoded 12/26/23 13:07 tape Allergy Unknown rash Uncoded 12/26/23 13:07 Home Medications ?Medication ?Instructions ?Recorded ?Confirmed ?Last Taken ?Type clonazepam 1 mg tablet 1 mg PO TID 11/21/22 Unknown History lamotrigine 200 mg tablet 200 mg PO DAILY 12/26/23 Unknown History (Lamictal) quetiapine 200 mg tablet (Seroquel) 200 mg PO DAILY 12/26/23 Unknown History PATIENT COORDINATOR FRONT DESK Physical Exam Vitals Vital signs: Temp Pulse Resp BP Pulse Ox O2 Del Method 98.7 F 78 20 108/67 100 Room Air 12/30/23 11:10 12/30/23 11:10 12/30/23 11:10 12/30/23 11:10 12/30/23 11:10 12/30/23 11:10 BMI result Body Mass Index 32.2 Abdomen Auscultation/Inspection/Palpation: Normal bowel sounds, Soft, Non-distended and No tenderness PATIENT COORDINATOR FRONT DESK - Results Labs 12/30/23 09:45 12/30/23 09:45 Labs: Short CBC 12/30/23 Range/Units 09:45 WBC 5.9 (4.8-10.8) X10*3/uL Hgb 12.6 (12.0-16.0) g/dl Hct 38.6 (37.0-47.0) % Plt Count 226 D (160-400) X10*3/uL BMP 12/30/23 09:45 Sodium 139 Potassium 4.3 Chloride 111 H Carbon Dioxide 20 L BUN 16 Creatinine 0.76 Calcium 8.6 D Liver Function 12/30/23 Range/Units 09:45 Total Bilirubin 0.2 (0.0-1.0) mg/dL Direct Bilirubin < 0.2 (0.0-0.5) mg/dL AST 14 (5-31) U/L ALT 12 (0-31) U/L Alkaline Phosphatase 60 (39-117) U/L Albumin 3.8 (3.5-5.0) g/dL Urine 12/30/23 Range/Units 10:40 Urine Color Yellow Urine Appearance Clear Urine pH 5.5 (5.0-9.0) Ur Specific [place] 1.015 (1.005-1.025) Urine Protein Negative (Neg-Trace) mg/dL Urine Glucose (UA) Negative (Negative) mg/dL Imaging CT scan - abdomen: Radiologist's impression: ITS Impressions Abdomen/Pelvis CT 12/30/23 11:15 IMPRESSION: 1. No nephrolithiasis or hydronephrosis. 2. Moderate degree of colonic stool burden with fecalization of a few loops of distal small bowel suggesting slow transit and constipation. 3. Mild colonic diverticulosis without evidence of acute diverticulitis. 4. Indeterminate low-density liver lesions in the posterior right hepatic lobe, not consistent with simple cysts. Recommend further characterization with a dynamic abdominal MRI with and without intravenous contrast. 5. Migration of the right tubal ligation clip to the left aspect of the cul-de-sac. Assessment and Plan (1) Abnormal CT scan: Status: Acute Discussed with the patient the finding on CT scan showing migration of right fallopian tube Filshie clip to the cul-de-sac. Since the patient has abdominal exam is within normal, recommended the patient close outpatient follow-up. Recommended outpatient laparoscopic removal of Filshie clip buddy. 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 Instructions given the patient to use a backup method for control, to come back to emergency room in case of fever, nausea and/or vomiting, persistent or worsening of her abdominal pain. All questions answered, the patient verbalized understanding
[2023-12-30 14:20] VITALS: BP 110/59; PULSE 75; RESP 18; TEMP 36.6; O2SAT 100
== END 2023-12-30 14:20 | disposition home or self-care (01) ==
PROVIDERS: Physician Assistant; Emergency Provider Emergency Medicine; PCP Internal Medicine
DX: K59.00 Constipation, unspecified (principal); R10.9 Unspecified abdominal pain; R10.12 Left upper quadrant pain; K57.30 Diverticulosis of large intestine without perforation or abscess without bleeding; R11.2 Nausea with vomiting, unspecified; R93.89 Abnormal findings on diagnostic imaging of other specified body structures; G90.A Postural orthostatic tachycardia syndrome [POTS]
CPT/HCPCS: 36415; 74176; 80048; 80076; 81001; 83690; 84702; 85025; 96361; 96374; 96375; 99283; 99284; J1170; J2405

== ENCOUNTER → 2023-12-30 09:38 | Outpatient (BNV) | payer OTHER, SELFPAY | PROVIDERS: Emergency Provider Emergency Medicine; PCP Internal Medicine; Visit Provider Obstetrics & Gynecology | DX: R93.89 Abnormal findings on diagnostic imaging of other specified body structures (principal) | CPT/HCPCS: 99283 ==

== ENCOUNTER 2024-04-18 12:27 | Emergency (ER) | payer OTHER, SELFPAY ==
--- NOTE | ~2024-04-18 | CT_ITS ---
EXAMINATION: CT ABDOMEN AND PELVIS WITHOUT CONTRAST CLINICAL INFORMATION: Flank pain. COMPARISON: December 30, 2023 TECHNIQUE: Multidetector volumetric imaging was performed from the superior aspect of the liver through the pubic symphysis. Sagittal and coronal reformatted images were obtained on the technologist's workstation. This CT examination was performed using dose optimization techniques as appropriate, variously including the following: *Automated exposure control *Adjustment of mA and/or kV according to patient size (this includes techniques or standardized protocols for targeted exams where dose is matched to indication/reason for exam; i.e. extremities or head) *Use of iterative reconstruction technique DLP: 592 mGy-cm FINDINGS: LUNG BASES: No pleural or pericardial effusion. LIVER, GALLBLADDER, AND BILIARY TREE: The noncontrast liver is normal in size and contour. No biliary ductal dilatation is present. The gallbladder is unremarkable with no evidence of radiopaque gallstones, gallbladder wall thickening, or obvious pericholecystic inflammatory changes. PANCREAS: Unremarkable. SPLEEN: Unremarkable. ADRENAL GLANDS: Unremarkable. KIDNEYS AND URETERS: The kidneys are symmetric in size. No hydronephrosis, hydroureter, or calculi seen. No perinephric stranding. BLADDER: Unremarkable. GASTROINTESTINAL TRACT: Small and large bowel loops are of normal caliber. No small bowel obstruction. Moderate fecal retention in the colon. Appendix is within normal limits. ABDOMINAL WALL: No significant hernia is appreciated. LYMPH NODES: No bulky lymphadenopathy. VASCULAR: Normal caliber abdominal aorta. PELVIC VISCERA: Tubal ligation clips. Possible posterior migration of the right tubal ligation clip. Retroverted uterus. OSSEOUS STRUCTURES: No destructive bone lesions. CT/CT abdomen pelvis wo IV con IMPRESSION: No nephrolithiasis or hydronephrosis. Electronically signed by: Bryson Rinaldi MD 04/18/2024 04:02 PM EDT
[2024-04-18 13:15] VITALS: BP 118/63; PULSE 82; RESP 18; TEMP 37.1; O2SAT 98; BMI 33.5
--- NOTE | 2024-04-18 13:20 | ED_ITS ---
HPI - General Adult General Chief complaint: Abdominal Pain Stated complaint: kidney stone sent from urgent care Time Seen by Provider: 04/18/24 21:02 Source: patient Mode of arrival: ambulatory Limitations: no limitations History of Present Illness ED Provider: Dr. Price HPI narrative: Patient with 10 days of LLQ pain, flank pain and dysuria. Was concerned that she was having a kidney stone which she had had in the past. She denies fever, voming, diarrhea. Onset (ago): week(s) Related Data Home Medications ?Medication ?Instructions ?Recorded ?Confirmed clonazepam 1 mg tablet 1 mg PO TID 11/21/22 lamotrigine 200 mg tablet 200 mg PO DAILY 12/26/23 (Lamictal) quetiapine 200 mg tablet (Seroquel) 200 mg PO DAILY 12/26/23 Previous Rx's ?Medication ?Instructions ?Recorded ciprofloxacin HCl 500 mg tablet 500 mg PO BID #14 tabs 12/26/23 tamsulosin 0.4 mg capsule (Flomax) 0.4 mg PO BEDTIME #14 caps 12/26/23 docusate sodium 100 mg capsule 100 mg PO BID #20 caps 12/30/23 (Col-Rite) lactulose 10 gram/15 mL oral 20 g (30 mL) PO DAILY PRN 12/30/23 solution constipation #237 mL Allergies Allergy/AdvReac Type Severity Reaction Status Date / Time pregabalin [From LYRICA] Allergy Intermediate HIVES, Verified 04/18/24 13:17 nausea and vomiting Sulfa (Sulfonamide Allergy Intermediate RASH Verified 04/18/24 13:17 Antibiotics) [SULFA (SULFONAMIDE ANTIBIOTICS)] amoxicillin [AMOXICILLIN] Allergy Unknown ITCHINESS Verified 04/18/24 13:17 AND REDNESS, rash carisoprodol [From SOMA] Allergy Unknown CHEST PAIN Verified 04/18/24 13:17 sulfur Allergy Unknown Abdominal Verified 04/18/24 13:17 Pain sulfa Allergy Unknown hives Uncoded 12/26/23 13:07 tape Allergy Unknown rash Uncoded 12/26/23 13:07 Review of Systems 2 Review of Systems: Yes all other systems are reviewed and are negative Neurologic: Denies Sensory deficit (Neuro) PMFSH Past Medical History Medical History Renal colic Fibromyalgia Depression Anxiety POTS (postural orthostatic tachycardia syndrome) Social History Social History Alcohol intake: never Patient Tobacco Use Status: Never used Tobacco Advance Directives: No Advance Directives Information Provided: No Do you have a plan to hurt others: No Plan Physical Exam ED Vital Signs: Vital Signs - 24 hr 04/18/24 13:15 04/18/24 20:22 Temperature 98.7 F 97.9 F Pulse Rate 82 86 Respiratory Rate 18 18 Blood Pressure 118/63 124/84 Pulse Oximetry 98 97 Oxygen Delivery Method Room Air Room Air BMI result Body Mass Index 33.5 Const General: healthy appearing Nutritional Appearance: average body habitus Orientation/consciousness: oriented to person and patient oriented x3 Limitations: no limitations HENMT Head: Yes normal to inspection Ears: external ears normal General nose exam: Normal external nose present Mouth: Normal oral and palatal mucosa present and oropharynx normal Throat: Yes posterior oropharynx normal Eyes General: appearance normal, both eyes and all related structures Neck Neck: Yes normal visual inspection Chest Chest palpation & inspection: normal inspection of the chest Resp Auscultation: clear to auscultation bilaterally Cardio Jugular venous distension: no JVD Rate: regular rate Rhythm: regular rhythm Heart sounds: S1 normal heart sound present and S2 normal heart sound present GI Inspection: Yes normal to inspection Palpation (GI): Soft to palpation, nontender and No hepatosplenomegaly present Auscultation: normal bowel sounds General: Yes no CVA tenderness Back/Spine/Pelvis Back: no CVA tenderness Skin General skin exam: no rashes or lesions noted Neuro General: oriented to person and patient oriented x3 Cranial nerves: Yes CN's II-XII intact bilaterally Motor exam (neuro): 5/5 motor strength present throughout Sensory Exam: No Sensory deficit (Neuro) Extrem General: Yes normal to inspection Psych Appearance: grossly normal Course Course Course Narrative: RME performed by Breanne Keller PA-C. Patient is a 43 year old assigned female at presenting to the emergency department with left flank pain. Patient states over the last 4 days she has had left sided flank pain. Detailed physical exam and review of systems are deferred to the wood processing worker. Labs and imaging ordered. Patient placed back in the waiting room pending room availability and results. Reevaluation(s) Reevaluation #1: patient with soft abdomen, no flank tenderness. CT normal, patient has her menses so there is blood in her urine, will dc on nsaids Time: 21:47 Medications Administered Discontinued Medications Generic Name Dose Route Start Last Admin Trade Name Estela PRN Reason Stop Dose Admin Ketorolac Tromethamine 60 mg 04/18/24 21:12 04/18/24 21:43 Ketorolac Tromethamine 60 Mg/2 Ml Vial IM 04/18/24 21:13 60 mg ONCE ONE Administration Medical Decision Making Differential Diagnosis Differential Diagnoses: The differential diagnosis associated with the presentation includes (renal colic, pyelonephritis, diverticulitis, ovarian cyst) Admission/Observation Consideration of admission/observation: Escalation of care including admission/observation considered (upon arrival patient considered for admission) Lab Data 04/18/24 13:42 04/18/24 13:42 Labs: Lab Results 04/18/24 Range/Units 13:42 WBC 8.3 (4.8-10.8) X10*3/uL RBC 4.41 (4.20-5.50) X10*6/uL Hgb 13.6 (12.0-16.0) g/dl Hct 41.6 (37.0-47.0) % MCV 94.3 (80.0-98.0) fL MCH 30.8 (27.0-33.0) pg MCHC 32.7 (31.0-35.0) g/dl RDW 12.8 (11.0-16.0) % Plt Count 361 D (160-400) X10*3/uL MPV 8.8 L (9.4-12.3) fL Immature Gran % (Auto) 1.1 H (0.0-0.4) % Neut % (Auto) 60.2 (45-73) % Lymph % (Auto) 26.4 (20-40) % [place] % (Auto) 8.5 (2-11) % Eos % (Auto) 3.1 (0-4) % Baso % (Auto) 0.7 (0-2) % Lymph # (Auto) 2.2 (1.2-4.9) X10*3/uL [place] # (Auto) 0.7 (0.1-1.2) X10*3/uL Eos # (Auto) 0.3 (0.0-0.4) X10*3/uL Baso # (Auto) 0.1 (0.0-0.2) X10*3/uL Abs Immat Gran (auto) 0.09 H (0.00-0.03) X10*3/uL Absolute Neuts (auto) 5.0 (2.0-8.3) x10*3/uL Absolute Nucleated RBC 0.000 (0.0-0.012) X10*3/uL Nucleated RBC % (auto) 0.0 (0.0-0.2) /100WBC Sodium 141 (135-145) mmol/L Potassium 3.9 (3.3-5.1) mmol/L Chloride 108 (96-108) mmol/L Carbon Dioxide 25 (22-29) mmol/L Anion Gap 12 (12-20) BUN 13 (9-16) mg/dL Creatinine 0.86 (0.5-1.4) mg/dL Estim Creat Clear Calc 83.5 Estimated GFR > 60 Random Glucose 100 (60-115) mg/dL Calcium 9.1 (8.4-10.2) mg/dL Magnesium 1.8 (1.6-2.6) mg/dL Total Bilirubin 0.2 (0.0-1.0) mg/dL AST 13 (5-31) U/L ALT 12 (0-31) U/L Alkaline Phosphatase 71 (39-117) U/L Total Creatine Kinase 132 (26-140) U/L Total Protein 7.3 (6.5-8.0) g/dL Albumin 4.3 (3.5-5.0) g/dL Beta HCG, Quant < 2 mIU/mL Urine Color Yellow Urine Appearance Clear Urine pH 5.5 (5.0-9.0) Ur Specific [place] 1.015 (1.005-1.025) Urine Protein Negative (Neg-Trace) mg/dL Urine Glucose (UA) Negative (Negative) mg/dL Urine Ketones Negative (Negative) mg/dL Urine Blood Large (3+) H (Negative) Urine Nitrite Negative (Negative) Ur Leukocyte Esterase Negative (Negative) Urine RBC >20 H (0-2) /HPF Urine WBC 0-5 (0-5) /HPF Ur Squamous Epith Cells 0-2 (0-2) /HPF Urine Bacteria None Seen (None Seen) Hyaline Casts 0-2 (0-2) /LPF Independent Interpretation I performed an independent interpretation of an: CT Scan (no hydro seen) Radiology Impression Discussion of test interpretation with radiology: I have reviewed the radiologist's reading. (and agree) Prescription Management I considered prescription management with: Antibiotic (no UTI, or diverticulitis seen) Discharge Plan Discharge Clinical Impression: Abdominal pain, Flank pain Patient Disposition: Home, Self-Care Instructions: Abdominal Pain (ED), Flank Pain (ED) Prescriptions: No Action docusate sodium [Col-Rite] 100 mg capsule 100 mg PO BID Qty: 20 0RF lactulose 10 gram/15 mL solution 20 g PO DAILY PRN (Reason: constipation) Qty: 237 0RF clonazepam 1 mg tablet 1 mg PO TID lamotrigine [Lamictal] 200 mg tablet 200 mg PO DAILY quetiapine [Seroquel] 200 mg tablet 200 mg PO DAILY tamsulosin [Flomax] 0.4 mg capsule 0.4 mg PO BEDTIME Qty: 14 0RF ciprofloxacin HCl 500 mg tablet 500 mg PO BID Qty: 14 0RF Referrals: Patricia Chaudhary MD [Primary Care Provider] - 3 days Print Language: Citizen Of [place]
[2024-04-18 13:47] LABS: MANUAL DIFF FLAG NO
[2024-04-18 13:50] LABS: Basophils Absolute Auto 0.1 X10*3/uL (0.0-0.2); Basophils Percent Auto 0.7 % (0-2); Eosinophils Absolute Auto 0.3 X10*3/uL (0.0-0.4); Eosinophils Percent Auto 3.1 % (0-4); Hematocrit 41.6 % (37.0-47.0); Hemoglobin 13.6 g/dl (12.0-16.0); Imm Gran Abs Auto 0.09 X10*3/uL (0.00-0.03); Imm Gran Pct Auto 1.1 % (0.0-0.4); Lymphocytes Absolute Auto 2.2 X10*3/uL (1.2-4.9); Lymphocytes Percent Auto 26.4 % (20-40); Mean Corpuscular HGB Conc 32.7 g/dl (31.0-35.0); Mean Corpuscular Hemoglobin 30.8 pg (27.0-33.0); Mean Corpuscular Volume 94.3 fL (80.0-98.0); Mean Platelet Volume 8.8 fL (9.4-12.3); Monocytes Absolute Auto 0.7 X10*3/uL (0.1-1.2); Monocytes Percent Auto 8.5 % (2-11); Neutrophils Percent Auto 60.2 % (45-73); Platelet Count 361 X10*3/uL (160-400); Red Blood Count 4.41 X10*6/uL (4.20-5.50); Red Cell Distribution Width 12.8 % (11.0-16.0); White Blood Count 8.3 X10*3/uL (4.8-10.8)
[2024-04-18 13:52] LABS: Appearance Urine Clear; Color Urine Yellow; Glucose Urine UA Negative (Negative); Leukocyte Esterase Urine Negative (Negative); Nitrite Urine Negative (Negative); PH 5.5 (5.0-9.0); Specific Gravity - Urine 1.015 (1.005-1.025); UMIC TRIGGER UACC YES; Urine Blood Large (3+) (Negative); Urine Ketones Negative (Negative); Urine Protein Negative (Neg-Trace)
[2024-04-18 13:54] LABS: Bacteria Urine None Seen (None Seen); Hyaline Casts Urine 0-2 /LPF (0-2); RBC Urine >20 /HPF (0-2); Squamous Epithelial Cell Urine 0-2 /HPF (0-2); WBC Urine 0-5 /HPF (0-5)
[2024-04-18 14:13] LABS: Alanine Aminotransferase 12 U/L (0-31); Albumin Level 4.3 g/dL (3.5-5.0); Alkaline Phosphatase 71 U/L (39-117); Anion Gap 12 (12-20); Aspartate Amino Transferase 13 U/L (5-31); Bilirubin Total 0.2 mg/dL (0.0-1.0); Blood Urea Nitrogen 13 mg/dL (9-16); Calcium 9.1 mg/dL (8.4-10.2); Carbon Dioxide 25 mmol/L (22-29); Chloride 108 mmol/L (96-108); Creatinine Clr Calc Pharmacy 83.5; Estimated Glomerular Filt Rate > 60; Glucose Random 100 mg/dL (60-115); HCG Quantitative < 2 mIU/mL; Magnesium 1.8 mg/dL (1.6-2.6); Potassium 3.9 mmol/L (3.3-5.1); Sodium 141 mmol/L (135-145); Total Protein 7.3 g/dL (6.5-8.0)
[2024-04-18 20:22] VITALS: BP 124/84; PULSE 86; RESP 18; TEMP 36.6; O2SAT 97
[2024-04-18] MEDS: Ketorolac Tromethamine 60 MG/2 ML VIAL IM (21:43)
[2024-04-18 22:08] VITALS: BP 117/83; PULSE 72; RESP 16; TEMP 36.8; O2SAT 99
== END 2024-04-18 22:10 | disposition home or self-care (01) ==
PROVIDERS: Emergency Medicine; Physician Assistant Medical; Emergency Provider Emergency Medicine; PCP Internal Medicine
DX: R10.32 Left lower quadrant pain (principal); R30.0 Dysuria; Z79.899 Other long term (current) drug therapy
CPT/HCPCS: 36415; 74176; 80053; 81001; 82550; 83735; 84702; 85025; 96372; 99284; J1885